=== PATIENT | female | born 1960 | race Two or more races ===

== ENCOUNTER → 2022-05-21 | Outpatient (CLI) | payer OTHER | END | disposition home or self-care (01) | LOC: MAMO-SONO 05-14 11:46 → SONOGRAMA 13:47 → MAMO-SONO 13:47 | PROVIDERS: ATTEND General Practice | DX: Z12.39 Encounter for other screening for malignant neoplasm of breast (principal); N64.4 Mastodynia; N63.0 Unspecified lump in unspecified breast ==

== ENCOUNTER 2025-05-23 11:42 | Emergency (ER) | payer OTHER ==
[~2025-05-23] VITALS: Ht 167.6 cm; Wt 90.7 kg
[2025-05-23] MEDS ORDERED: FAMOtidine 10 MG/ML (4ML VIAL) IV PUSH ONE (12:15)
[2025-05-23] MEDS ORDERED: MORPHINE SULFATE 4 MG/ML CARTRIDGE IV ONE (12:15)
[2025-05-23] MEDS ORDERED: ENALAPRILAT DIHYDRATE 1.25 MG/ML VIAL IV ONE ×2 (12:15→12:33)
[2025-05-23] MEDS ORDERED: ONDANSETRON HCL 2 MG/ML VIAL IV ONE ×2 (12:15→19:45)
[2025-05-23] MEDS ORDERED: 0.9 % SODIUM CHLORIDE 1,000 ML IV SCH (12:15)
[2025-05-23] MEDS ORDERED: ONDANSETRON HCL 2 MG/ML VIAL ONE ×2 (12:33→19:38)
[2025-05-23] MEDS ORDERED: FAMOTIDINE/PF 20 MG/2 ML VIAL ONE ×3 (12:33→19:17)
[2025-05-23 12:44] LABS: BASO % 0.4 % (0.1-1.2); EOS # 0.01 (0.04-0.54); EOS % 0.1 % (0.7-7.0); LYMPH # 1.05 (1.18-3.74); LYMPH % 10.9 % (19.3-53.1); MEAN PLATELET VOLUME 10.00 fl (9.4-12.4); MONO # 0.27 (0.24-0.82); MONO % 2.8 % (4.7-12.5); NEUT # 8.19 (1.56-6.13); NEUT % 85.5 % (34.0-71.1); RED CELL DISTRIBUTION WIDTH 13.2 % (11.6-14.4)
[2025-05-23 13:31] LABS: ALT/SGPT 26.0 U/L (12-78); AST/SGOT 13.0 U/L (15-37); BILIRUBIN TOTAL 0.85 mg/dL (0.3-1.2); BUN CREA RATIO 16.0 (7.0-25.0); CREATININE SERUM 0.63 mg/dL (0.55-1.02); GFR 95.44; GLOBULINA 4.0 G/DL (2.4-3.5); GLUCOSE FASTING 130.0 mg/dL (65-100); OSMOLALITY SERUM 278.0 MOSM/KG (275-295)
[2025-05-23] MEDS ORDERED: hydrALAZINE HCL 20 MG VIAL IV ONE (14:30)
[2025-05-23 14:54] LABS: URINE APPEARANCE Clear; URINE BILIRRUBIN Negative (NEGATIVE); URINE BLOOD Large; URINE COLOR Yellow; URINE LEUKOCYTE Negative; URINE NITRATE Negative; URINE UROBILINOGEN 0.2 E.U./dl
[2025-05-23 14:55] LABS: INR 1.07
[2025-05-23 14:58] LABS: URINE BACTERIA 43.4 uL (0.0-1933); URINE EPITHELIAL CELLS 5.6 uL (0.0-38.8); URINE RBC 288.8 uL (0.0-20.8); URINE WBC 13.7 uL (0.0-23.2)
[2025-05-23 15:23] LABS: URINE CAST 0.42 uL (0.0-1.40); URINE GLUCOSE 100 MG/DL (NEGATIVE); URINE KETONE 40 (NEGATIVE); URINE PROTEIN 300 (NEGATIVE)
[2025-05-23] MEDS ORDERED: hydrALAZINE HCL 20 MG VIAL ONE (15:40)
[2025-05-23] MEDS ORDERED: CIPROFLOXACIN IN 5 % DEXTROSE 200 ML IV ONE (19:15)
[2025-05-23] MEDS ORDERED: FAMOTIDINE/PF 20 MG in 0.9 % SODIUM CHLORIDE 8 ML IV PUSH ONE (19:15)
[2025-05-23] MEDS ORDERED: HYOSCYAMINE SULFATE 0.125 MG TAB.SUBL PO ONE (19:15)
[2025-05-23] MEDS ORDERED: METRONIDAZOLE/SODIUM CHLORIDE 500 MG/100 ML PIGGYBACK IV ONE ×2 (19:15→19:17)
[2025-05-23] MEDS ORDERED: LABETALOL HCL 20MG/4ML SYRINGE IV ONE (19:15)
[2025-05-23] MEDS ORDERED: CIPROFLOXACIN IN 5 % DEXTROSE 400 MG/200 ML PIGGYBAG IV ONE (19:17)
[2025-05-23] MEDS ORDERED: LABETALOL HCL 100 MG/20 ML ML ONE (19:17)
[2025-05-23] MEDS ORDERED: HYOSCYAMINE SULFATE 0.125 MG TAB.SUBL ONE (19:21)
[2025-05-23] MEDS ORDERED: PROTONIX40 MG PO (22:16)
[2025-05-23] MEDS ORDERED: CARAFATE1 GM PO (22:16)
[2025-05-23] MEDS ORDERED: LEVSIN/SL0.125 MG SL (22:16)
[2025-05-23] MEDS ORDERED: METRONIDAZOLE500 MG PO (22:16)
[2025-05-23] MEDS ORDERED: CIPRO500 MG PO (22:16)
[2025-05-23] MEDS ORDERED: PEPCID AC20 MG PO (22:16)
== END 2025-05-23 22:29 | disposition home or self-care (01) ==
LOC: ER 11:43
PROVIDERS: General Practice
DX: K57.92 Diverticulitis of intestine, part unspecified, without perforation or abscess without bleeding (principal); R10.9 Unspecified abdominal pain; R10.13 Epigastric pain; R11.2 Nausea with vomiting, unspecified; R07.89 Other chest pain; I10 Essential (primary) hypertension; E11.9 Type 2 diabetes mellitus without complications
CPT/HCPCS: 36415; 71046; 74177; 82803; 93041; Q9965